=== PATIENT | male | born 1970 | race Caucasian/White ===

== ENCOUNTER 2017-02-28 12:02 | Emergency (ER) | payer MEDICAID ==
[~2017-02-28] VITALS: Ht 177.8 cm; Wt 75.7 kg
[2017-02-28 12:05] VITALS: BP 130/72
== END 2017-02-28 12:44 | disposition home or self-care (01) ==
LOC: ER 12:04
DX: H10.32 Unspecified acute conjunctivitis, left eye (principal)
CPT/HCPCS: A4606; Z7610